=== PATIENT | female | born 1970 | race Caucasian/White ===

== ENCOUNTER 2017-09-15 11:44 | Emergency (ER) | payer MEDICAID ==
[2016-02-03 19:43] VITALS: BMI 44.9
[~2017-09-15 11:44] MED LIST: BUPROPION XL300 MG PO; LEVAQUIN500 MG PO; OMNICEF300 MG PO; PHENERGAN6.25 MG/5 PO; PREDNISONE10 MG PO; PROAIR HFA8.5 GM INH; PROZAC40 MG PO; STERAPRED 5MG 125 MG PO; TRAZODONE HCL50 MG PO; ZPAK PO
== END 2017-09-15 13:12 | disposition home or self-care (01) ==
LOC: D.ER 11:44
DX: J20.9 Acute bronchitis, unspecified (principal); I10 Essential (primary) hypertension